=== PATIENT | male | born 1950 | race Caucasian/White ===

== ENCOUNTER → 2016-08-08 | Outpatient (CLI) | payer MEDICARE ==
[~2016-08-08] VITALS: Ht 179.1 cm; Wt 80.1 kg
[~2016-08-08] MED LIST: CHLORHEXIDINE GLUCONATE 2 % 1 PACK (2 CLOTHS) TOPICAL PRN; DEXTROSE 5% IN WATE 500 ML INJ 500 ML IV SCH; INSULIN HUMAN REGULAR 1,000 UNITS/10 ML VIAL SQ PRN; LACTATED RINGER'S 1000 ML IV PRN; LOVA20TA PO; METOPROLOL TARTRATE 25 MG TAB PO PRN; POVIDONE IODINE 5% (ANTISEPSIS KIT) 4 APPLICATIONS EACH NARE PRN; PROPOFOL 200 MG/20 ML AMP IV ONE; SODIUM CHLORID 0.9% 500 ML IV PRN
[2016-08-08 06:57] VITALS: BP 146/96; PULSE 70; RESP 18; TEMP 98.3; O2SAT 96
[2016-08-08 08:18] VITALS: TEMP 97.5
--- NOTE | 2016-08-08 08:21 | GIPROC ---
[facility] [address] [facility]. [facility], [id number] COLONOSCOPY PROCEDURE REPORT EXAM DATE: 08/08/2016 PATIENT NAME: Rell Jacinto MR #: [id number] BIRTHDATE: 1950 ENDOSCOPIST: Nataliya Brady MD ORDER #: [id number] VORTEX OPERATOR: STATUS: outpatient INDICATIONS: The patient is a 66 yr old male here for a colonoscopy due to Screening PROCEDURE PERFORMED: Total Colonoscopy MEDICATIONS: See Anesthesia Record ESTIMATED BLOOD LOSS: None CONSENT: The patient understands the risks and benefits of the procedure and understands that these risks include, but are not limited to: sedation, allergic reaction, infection, perforation and/or bleeding. Alternative means of evaluation and treatment include, among others: physical exam, x-rays, and/or surgical intervention. The patient elects to proceed with this endoscopic procedure. DESCRIPTION OF PROCEDURE: checked for proper function. Hand hygiene and appropriate measures for infection prevention was taken. After the risks, benefits and alternatives of the procedure were thoroughly explained, Informed consent was verified, confirmed and timeout was successfully executed by the treatment team. A digital exam was performed. The endoscope was introduced through the anus and advanced to the cecum, which was identified by the appendiceal orifice, tri-radiate valve, and ileocecal valve. The prep quality was fair. The instrument was then slowly withdrawn as the colon was fully examined There were no mucosal abnormalities noted with the cecum, ascending colon, transverse colon, or descending colon. Mild diverticulosis was noted in the sigmoid. There were no abnormalities in the rectum. The scope was then completely withdrawn from the patient and the procedure terminated. ADVERSE EVENTS: There were no complications. WITHDRAWL TIME: DEGREE OF DIFFICULTY: IMPRESSIONS: Normal Colon RECOMMENDATIONS: Repeat screening in 10 years PATIENT CONDITION: Stable DISPOSITION: Home RECALL: 10 years Nataliya Brady MD eSigned: Nataliya Brady MD 08/08/2016 8:21 AM cc: Dr. Lane PATIENT NAME: Rell Jacinto MR#: [id number]
[2016-08-08 08:40] VITALS: BP 134/73; PULSE 74; RESP 18; O2SAT 96
--- NOTE | 2016-08-08 19:21 | EKG ---
Date Performed: 08/08/2016 Time Performed: 06:28:35 PTAGE: 66 years EKG: Sinus rhythm BORDERLINE LEFT AXIS DEVIATION BORDERLINE ECG NO PREVIOUS TRACING DOCTOR: Lizeth Schmidt Interpretating Date/Time 08/08/2016 19:20:37
== END ==
LOC: HEND 05:52
PROVIDERS: ATTEND Colon & Rectal Surgery
DX: Z12.11 Encounter for screening for malignant neoplasm of colon (principal); K57.90 Diverticulosis of intestine, part unspecified, without perforation or abscess without bleeding; R94.31 Abnormal electrocardiogram [ECG] [EKG]
CPT/HCPCS: 00810; 45378; 93005; J7120